=== PATIENT | female | born 1975 | race Caucasian/White ===

== ENCOUNTER 2017-02-03 01:10 | Emergency (ER) | payer MEDICARE | END 2017-02-03 02:40 | disposition home or self-care (01) | LOC: D.ER 01:10 | DX: H92.02 Otalgia, left ear (principal); R51 Headache; F17.200 Nicotine dependence, unspecified, uncomplicated; F41.9 Anxiety disorder, unspecified; F31.89 Other bipolar disorder ==

== ENCOUNTER 2017-04-02 21:17 | Emergency (ER) | payer MEDICARE | END 2017-04-02 22:45 | disposition home or self-care (01) | LOC: D.ER 21:17 | DX: R07.89 Other chest pain (principal); I45.10 Unspecified right bundle-branch block; I44.60 Unspecified fascicular block ==

== ENCOUNTER 2017-04-07 10:57 | Emergency (ER) | payer MEDICARE | END 2017-04-07 13:50 | disposition home or self-care (01) | LOC: D.ER 10:57 | DX: M54.12 Radiculopathy, cervical region (principal); F17.200 Nicotine dependence, unspecified, uncomplicated ==

== ENCOUNTER 2017-04-12 13:35 | Emergency (ER) | payer MEDICARE | END 2017-04-12 16:48 | disposition home or self-care (01) | LOC: D.ER 13:35 | DX: F41.9 Anxiety disorder, unspecified (principal); M54.12 Radiculopathy, cervical region ==

== ENCOUNTER 2017-04-16 19:33 | Emergency (ER) | payer MEDICARE | END 2017-04-16 23:14 | disposition home or self-care (01) | LOC: D.ER 19:33 | DX: M25.511 Pain in right shoulder (principal); S46.911A Strain of unspecified muscle, fascia and tendon at shoulder and upper arm level, right arm, initial encounter; X58.XXXA Exposure to other specified factors, initial encounter; Y93.89 Activity, other specified; Y92.89 Other specified places as the place of occurrence of the external cause; M25.411 Effusion, right shoulder; F17.200 Nicotine dependence, unspecified, uncomplicated ==